=== PATIENT | female | born 1965 | race Caucasian/White ===

== ENCOUNTER 2021-10-12 16:24 | Inpatient (IN) ==
[2021-10-12] MEDS ORDERED: Calcium Carb (TUMS) 500 mg CHEW TAB PO PRN (16:58)
[2021-10-12] MEDS ORDERED: Phenol 1.4% Throat Spray 177 ml BTL MT PRN (17:26)
[2021-10-12] MEDS: Polyethylene Glycol 3350 17 GM PACKET PO SCH (19:44)
[2021-10-13] MEDS: Polyethylene Glycol 3350 17 GM PACKET PO SCH ×2 (09:28→21:45)
[2021-10-13] MEDS: Venlafaxine XR 75 mg PO SCH (09:28)
[2021-10-13] MEDS ORDERED: CALCIUM GLUCONATE 1GM/50ML NS 1 GM/50 ML BAG IV ONE (14:38)
[2021-10-14] MEDS: Polyethylene Glycol 3350 17 GM PACKET PO SCH ×2 (08:35→21:24)
[2021-10-14] MEDS: Venlafaxine XR 75 mg PO SCH (08:35)
[2021-10-15] MEDS: Venlafaxine XR 75 mg PO SCH (08:18)
[2021-10-15] MEDS: Polyethylene Glycol 3350 17 GM PACKET PO SCH ×2 (10:16→20:55)
[2021-10-16] MEDS: Venlafaxine XR 75 mg PO SCH (08:20)
[2021-10-16] MEDS ORDERED: fentaNYL 100 mcg/2 ml 50 MCG/ML VIAL IV SLOW PU ONE ×2 (11:15→15:11)
[2021-10-16] MEDS: Polyethylene Glycol 3350 17 GM PACKET PO SCH (12:07)
[2021-10-16 14:08] LABS: ABS Eosinophils 0.2 10^3/ul (0-0.6); ABS Monocytes 0.4 10^3/ul (0-0.8); ABS Neutrophils 7.2 10^3/ul (1.5-7.7); Eosinophil % 2.2 %; Hematocrit 34 % (35-47); Lymphocyte % 10.8 %; Mean Corpuscular HGB Conc 33 g/dL (31-36); Mean Corpuscular Hemoglobin 28 pg (27-31); Mean Corpuscular Volume 84 fL (80-97); Mean Platelet Volume 7.6 fL (7.4-10.4); Platelet Count 318 10^3/uL (150-450); Red Blood Count 3.99 10^6 /uL (3.70-4.87); Red Cell Distribution Width 15 % (10-15); White Blood Count 8.9 10^3/uL (3.5-10.8)
[2021-10-16 14:44] VITALS: BP 144/87
[2021-10-16 14:50] LABS: Albumin 3.6 g/dL (3.2-5.2); Albumin/Globulin Ratio 1.3 (1-3); Globulin 2.7 g/dL (2-4); Magnesium 1.1 mg/dL (1.9-2.7); Potassium 3.9 mmol/L (3.5-5.0); Total Bilirubin 0.3 mg/dL (0.2-1.0); Total Protein 6.3 g/dL (6.4-8.9); eGFR CKD-EPI 104.5 (>60)
[2021-10-16] MEDS ORDERED: Magnesium Sulfate 2 gm BAG 2 GM/50 ML BAG IVPB ONE (14:51)
[2021-10-16 15:01] LABS: TSH Ultra Thyroid Stim Horm 8.53 mcIU/mL (0.34-5.60)
[2021-10-16 15:03] LABS: Free T4 0.81 ng/dL (0.61-1.12)
== END 2021-10-16 17:45 | disposition short-term general hospital (02) | DRG 389 ==
LOC: MED 16:24
PROVIDERS: ADMIT Internal Medicine; ATTEND Internal Medicine

== ENCOUNTER 2021-10-16 17:55 | Inpatient (IN) ==
[2021-10-16] MEDS ORDERED: Calcium Carb (TUMS) 500 mg CHEW TAB PO PRN (18:01)
[2021-10-16] MEDS ORDERED: Naloxone Nasal Spray 4 MG/0.1 ML NASAL.SPR INTRANASAL PRN (18:01)
[2021-10-16] MEDS: Polyethylene Glycol 3350 17 GM PACKET PO SCH (20:29)
[2021-10-16] MEDS: Enoxaparin 40 MG/0.4 ML SYR SUBCUT SCH (20:29)
[2021-10-16] MEDS ORDERED: Methylnaltrexone SQ (NF) 12 MG/0.6 ML VIAL SUBCUT ONE (20:30)
[2021-10-17] MEDS: Polyethylene Glycol 3350 17 GM PACKET PO SCH ×3 (08:11→20:16)
[2021-10-17] MEDS: Venlafaxine XR 75 mg PO SCH (08:12)
[2021-10-17 08:28] LABS: ABS Eosinophils 0.2 10^3/ul (0-0.6); ABS Monocytes 0.3 10^3/ul (0-0.8); ABS Neutrophils 6.3 10^3/ul (1.5-7.7); Eosinophil % 3.1 %; Hematocrit 34 % (35-47); Hemoglobin 11.3 g/dL (12.0-16.0); Lymphocyte % 12.4 %; Mean Corpuscular HGB Conc 33 g/dL (31-36); Mean Corpuscular Hemoglobin 28 pg (27-31); Mean Corpuscular Volume 84 fL (80-97); Mean Platelet Volume 7.3 fL (7.4-10.4); Platelet Count 316 10^3/uL (150-450); Red Blood Count 4.03 10^6 /uL (3.70-4.87); Red Cell Distribution Width 15 % (10-15); White Blood Count 7.9 10^3/uL (3.5-10.8)
[2021-10-17 09:00] LABS: Calcium 9.2 mg/dL (8.6-10.3); Magnesium 1.4 mg/dL (1.9-2.7); Potassium 3.7 mmol/L (3.5-5.0); eGFR CKD-EPI 106.6 (>60)
[2021-10-17] MEDS ORDERED: Magnesium Sulfate 2 gm BAG 2 GM/50 ML BAG IVPB ONE ×2 (13:01→18:00)
[2021-10-17] MEDS ORDERED: Potassium Chlor 20 meq TAB.ER PO ONE (13:01)
[2021-10-17] MEDS: Enoxaparin 40 MG/0.4 ML SYR SUBCUT SCH (17:24)
[2021-10-18 06:45] LABS: ABS Eosinophils 0.2 10^3/ul (0-0.6); ABS Monocytes 0.4 10^3/ul (0-0.8); ABS Neutrophils 5.1 10^3/ul (1.5-7.7); Eosinophil % 3.2 %; Hematocrit 32 % (35-47); Hemoglobin 10.6 g/dL (12.0-16.0); Lymphocyte % 14.7 %; Mean Corpuscular HGB Conc 33 g/dL (31-36); Mean Corpuscular Hemoglobin 28 pg (27-31); Mean Corpuscular Volume 85 fL (80-97); Mean Platelet Volume 7.5 fL (7.4-10.4); Platelet Count 311 10^3/uL (150-450); Red Blood Count 3.78 10^6 /uL (3.70-4.87); Red Cell Distribution Width 15 % (10-15); White Blood Count 6.8 10^3/uL (3.5-10.8)
[2021-10-18 07:03] LABS: Magnesium 1.8 mg/dL (1.9-2.7); Potassium 4.2 mmol/L (3.5-5.0); eGFR CKD-EPI 104.5 (>60)
[2021-10-18] MEDS: Venlafaxine XR 75 mg PO SCH (08:54)
[2021-10-18] MEDS: Polyethylene Glycol 3350 17 GM PACKET PO SCH ×3 (09:02→21:44)
[2021-10-18] MEDS ORDERED: Magnesium Sulfate 2 gm BAG 2 GM/50 ML BAG IVPB ONE (11:41)
[2021-10-18] MEDS ORDERED: Sodium Phosphate ADULT ENEMA 133 ML BTL PR ONE (11:42)
[2021-10-18] MEDS ORDERED: Methylnaltrexone SQ (NF) 12 MG/0.6 ML VIAL SUBCUT ONE (11:44)
[2021-10-18] MEDS ORDERED: Orphenadrine Citrate INJ 30 mg/ml 2 ml VIAL (60 mg) IV SCH (12:00)
[2021-10-18] MEDS ORDERED: Orphenadrine Citrate INJ 30 mg/ml 2 ml VIAL (60 mg) IV ONE (12:31)
[2021-10-18] MEDS: Enoxaparin 40 MG/0.4 ML SYR SUBCUT SCH (16:55)
[2021-10-19 06:00] LABS: Calcium 8.6 mg/dL (8.6-10.3); Magnesium 1.5 mg/dL (1.9-2.7); Potassium 3.8 mmol/L (3.5-5.0); eGFR CKD-EPI 106.1 (>60)
[2021-10-19 06:55] LABS: ABS Eosinophils 0.1 10^3/ul (0-0.6); ABS Monocytes 0.4 10^3/ul (0-0.8); ABS Neutrophils 3.7 10^3/ul (1.5-7.7); Eosinophil % 2.8 %; Hematocrit 30 % (35-47); Hemoglobin 9.9 g/dL (12.0-16.0); Lymphocyte % 18.1 %; Mean Corpuscular HGB Conc 33 g/dL (31-36); Mean Corpuscular Hemoglobin 28 pg (27-31); Mean Corpuscular Volume 85 fL (80-97); Mean Platelet Volume 7.8 fL (7.4-10.4); Nucleated Red Blood Cells % 0.1; Platelet Count 297 10^3/uL (150-450); Red Blood Count 3.53 10^6 /uL (3.70-4.87); Red Cell Distribution Width 15 % (10-15); White Blood Count 5.3 10^3/uL (3.5-10.8)
[2021-10-19] MEDS ORDERED: Potassium Chlor 20 meq TAB.ER PO ONE (07:10)
[2021-10-19] MEDS: Venlafaxine XR 75 mg PO SCH (07:38)
[2021-10-19] MEDS: Polyethylene Glycol 3350 17 GM PACKET PO SCH ×2 (07:41→20:44)
[2021-10-19] MEDS: Enoxaparin 40 MG/0.4 ML SYR SUBCUT SCH (19:14)
[2021-10-20 06:15] LABS: ABS Eosinophils 0.2 10^3/ul (0-0.6); ABS Lymphocytes 0.9 10^3/ul (1.0-4.8); ABS Monocytes 0.4 10^3/ul (0-0.8); ABS Neutrophils 4.3 10^3/ul (1.5-7.7); Hematocrit 27 % (35-47); Lymphocyte % 15.1 %; Mean Corpuscular HGB Conc 33 g/dL (31-36); Mean Corpuscular Hemoglobin 28 pg (27-31); Mean Corpuscular Volume 84 fL (80-97); Mean Platelet Volume 7.6 fL (7.4-10.4); Platelet Count 241 10^3/uL (150-450); Red Blood Count 3.25 10^6 /uL (3.70-4.87); Red Cell Distribution Width 15 % (10-15); White Blood Count 5.7 10^3/uL (3.5-10.8)
[2021-10-20 06:33] LABS: Calcium 8.5 mg/dL (8.6-10.3); Magnesium 1.3 mg/dL (1.9-2.7); Potassium 3.8 mmol/L (3.5-5.0); eGFR CKD-EPI 106.1 (>60)
[2021-10-20] MEDS ORDERED: Magnesium Sulfate 2 gm BAG 2 GM/50 ML BAG IVPB ONE ×2 (07:19→11:00)
[2021-10-20] MEDS: Polyethylene Glycol 3350 17 GM PACKET PO SCH ×2 (08:09→22:02)
[2021-10-20] MEDS: Venlafaxine XR 75 mg PO SCH (08:11)
[2021-10-20] MEDS: Enoxaparin 40 MG/0.4 ML SYR SUBCUT SCH (17:17)
[2021-10-21 06:43] LABS: Calcium 8.8 mg/dL (8.6-10.3); Magnesium 1.4 mg/dL (1.9-2.7); Potassium 4.1 mmol/L (3.5-5.0)
[2021-10-21] MEDS ORDERED: Magnesium Sulfate 2 gm BAG 2 GM/50 ML BAG IVPB ONE (08:00)
[2021-10-21] MEDS: Polyethylene Glycol 3350 17 GM PACKET PO SCH ×2 (08:28→22:00)
[2021-10-21] MEDS: Venlafaxine XR 75 mg PO SCH (08:28)
[2021-10-21] MEDS: Enoxaparin 40 MG/0.4 ML SYR SUBCUT SCH (17:28)
[2021-10-22] MEDS: Venlafaxine XR 75 mg PO SCH (07:43)
[2021-10-22] MEDS: Polyethylene Glycol 3350 17 GM PACKET PO SCH (07:44)
[2021-10-22] MEDS: Enoxaparin 40 MG/0.4 ML SYR SUBCUT SCH (17:28)
[2021-10-23] MEDS: Venlafaxine XR 75 mg PO SCH (08:26)
[2021-10-23] MEDS: Polyethylene Glycol 3350 17 GM PACKET PO SCH (08:27)
[2021-10-23] MEDS: Enoxaparin 40 MG/0.4 ML SYR SUBCUT SCH (18:17)
[2021-10-24] MEDS: Venlafaxine XR 75 mg PO SCH (08:46)
[2021-10-24] MEDS: Polyethylene Glycol 3350 17 GM PACKET PO SCH (08:57)
[2021-10-24] MEDS: Enoxaparin 40 MG/0.4 ML SYR SUBCUT SCH (17:14)
[2021-10-25 05:38] LABS: ABS Eosinophils 0.3 10^3/ul (0-0.6); ABS Monocytes 0.4 10^3/ul (0-0.8); Eosinophil % 4.4 %; Hematocrit 30 % (35-47); Hemoglobin 9.7 g/dL (12.0-16.0); Lymphocyte % 17.3 %; Mean Corpuscular HGB Conc 32 g/dL (31-36); Mean Corpuscular Hemoglobin 27 pg (27-31); Mean Corpuscular Volume 85 fL (80-97); Mean Platelet Volume 7.6 fL (7.4-10.4); Nucleated Red Blood Cells % 0.1; Platelet Count 222 10^3/uL (150-450); Red Blood Count 3.55 10^6 /uL (3.70-4.87); Red Cell Distribution Width 15 % (10-15); White Blood Count 5.7 10^3/uL (3.5-10.8)
[2021-10-25 05:51] LABS: Calcium 8.2 mg/dL (8.6-10.3); Potassium 3.7 mmol/L (3.5-5.0)
[2021-10-25 08:04] LABS: Magnesium 1.1 mg/dL (1.9-2.7)
[2021-10-25] MEDS ORDERED: Magnesium Sulf 4 GM/100 ML IV 4,000 MG/100 ML BAG IVPB ONE (08:47)
[2021-10-25] MEDS: Venlafaxine XR 75 mg PO SCH (08:49)
[2021-10-25] MEDS: Polyethylene Glycol 3350 17 GM PACKET PO SCH (08:52)
[2021-10-25] MEDS: Enoxaparin 40 MG/0.4 ML SYR SUBCUT SCH (18:02)
[2021-10-26] MEDS: Venlafaxine XR 75 mg PO SCH (08:35)
[2021-10-26] MEDS: Polyethylene Glycol 3350 17 GM PACKET PO SCH (08:36)
[2021-10-26] MEDS ORDERED: Magnesium Sulf 4 GM/100 ML IV 4,000 MG/100 ML BAG IVPB ONE (09:54)
[2021-10-26 12:58] LABS: Rapid COVID-19 Molecular Undetected (Undetected)
[2021-10-26] MEDS: Enoxaparin 40 MG/0.4 ML SYR SUBCUT SCH (17:29)
[2021-10-27] MEDS: Venlafaxine XR 75 mg PO SCH (07:44)
[2021-10-27] MEDS: Polyethylene Glycol 3350 17 GM PACKET PO SCH (07:45)
[2021-10-27] MEDS ORDERED: Magnesium Sulf 4 GM/100 ML IV 4,000 MG/100 ML BAG IVPB ONE (07:45)
[2021-10-27 10:29] VITALS: BP 108/67
== END 2021-10-27 15:25 | DRG 389 ==
LOC: MED → SUATTDRO 17:59
PROVIDERS: ADMIT Internal Medicine; ATTEND Internal Medicine

== ENCOUNTER 2022-10-21 17:12 | Inpatient (IN) ==
[2022-10-21] MEDS ORDERED: HYDROmorphone 1 MG/1 ML SYRINGE IV SLOW PU ONE (17:30)
[2022-10-21] MEDS ORDERED: Lactated Ringers 1000 ml BAG 1,000 ML IV ONE ×2 (17:40→18:24)
[2022-10-21] MEDS ORDERED: Acetaminophen IV 1 GM/100ML 1,000 MG/100 ML BAG IV ONE (17:43)
[2022-10-21 18:13] LABS: Hematocrit 37.7 % (35-45); Mean Corpuscular Hemoglobin 29.9 pg (27-33); Mean Corpuscular Hgb Conc 34.6 g/dL (31-36); Mean Corpuscular Volume 86.6 fL (80-97); Red Blood Count 4.35 10^6/uL (3.63-4.92); Red Cell Distribution Width 14.4 % (12-17); White Blood Count 15.7 10^3/uL (3.8-11.8)
[2022-10-21 18:19] LABS: Activated Partial Thrombo Time 29.4 seconds (26.0-38.0); INR 1.1 (0.88-1.18)
[2022-10-21] MEDS ORDERED: Piperacillin/Tazobac ADVAN 3.375 GM in NS 0.9% 100 ml BAG 100 ML IV ONE (18:22)
[2022-10-21 18:30] LABS: High Sens Troponin Baseline 32 pg/mL (<15)
[2022-10-21 18:33] LABS: RBC Morphology Normal (Normal)
[2022-10-21 18:34] LABS: Mean Platelet Volume 8.2 fL (7.5-11.2); Platelet Count 229 10^3/uL (150-450)
[2022-10-21 18:35] LABS: ABS Lymphocytes 0.3 10^3/uL (1.0-4.8); ABS Monocytes 0.2 10^3/uL (0.0-0.9); ABS Neutrophils 15.1 10^3/uL (1.5-7.6); ABS Nucleated RBC 0.01 10^3/ul; Eosinophil % 0.1 %; Lymphocyte % 2.1 %; Nucleated Red Blood Cells % 0.1 /100 WBC (0.0-0.4)
[2022-10-21 18:40] LABS: ALT 62 U/L (7-52); Albumin 4.1 g/dL (3.2-5.2); Albumin/Globulin Ratio 1.1 (1-3); Alkaline Phosphatase 125 U/L (35-149); Blood Urea Nitrogen 20 mg/dL (6-24); C Reactive Protein 175.66 mg/L (<8.01); CO2 Carbon Dioxide 28 mmol/L (22-32); Calcium 9.2 mg/dL (8.6-10.3); Chloride 93 mmol/L (101-111); Creatinine, Serum 0.95 mg/dL (0.51-0.95); Globulin 3.7 g/dL (2-4); Glucose 212 mg/dL (70-100); Sodium 133 mmol/L (135-145); Total Protein 7.8 g/dL (6.4-8.9); eGFR CKD-EPI 69.9 (>60)
[2022-10-21] MEDS ORDERED: Iodixanol (CONTRAST) 320 MG/ML 100 ML SDV IV ONE (19:06)
[2022-10-21] MEDS ORDERED: HYDROmorphone 0.5 MG/0.5 ML SYRINGE IV SLOW PU ONE (19:22)
[2022-10-21 19:41] LABS: Anion Gap 12 mmol/L (2-16)
[2022-10-21 19:49] LABS: Potassium Redraw 3.4 mmol/L (3.5-5.0)
[2022-10-21] MEDS ORDERED: NS 0.9% 1000 ml BAG 1,000 ML IV SCH (22:45)
[2022-10-21] MEDS ORDERED: Potassium Chlor 20 meq TAB.ER PO ONE (22:48)
[2022-10-21] MEDS ORDERED: Zosyn per Pharmacy NOTE FOLLOW UP SCH (23:00)
[2022-10-21] MEDS ORDERED: Magnesium Hydroxide LIQ 30 ML UDC PO PRN (23:03)
[2022-10-22] MEDS ORDERED: oxyCODONE/Acetamin 5/325 mg TAB PO PRN (00:14)
[2022-10-22] MEDS ORDERED: Polyethylene Glycol 3350 17 GM PACKET PO PRN (00:14)
[2022-10-22] MEDS ORDERED: ONLY PO SCH (00:30)
[2022-10-22] MEDS ORDERED: HYDROCODONE BITARTRATE PO SCH (00:30)
[2022-10-22 00:51] LABS: Urine Appearance Cloudy; Urine Bacteria Absent (Absent); Urine Bilirubin Negative (Negative); Urine Blood 1+ (Negative); Urine Color Yellow; Urine Glucose Negative (Negative); Urine Ketones Negative (Negative); Urine Nitrite Negative (Negative); Urine Protein 2+(100 mg/dL) (Negative); Urine Red Blood Cell 3+(>10/hpf) (Absent); Urine Urobilinogen Negative (Negative); Urine White Blood Cell 3+(>20/hpf) (Absent)
[2022-10-22 01:00] LABS: Urine Squamous Epithelial Cell Present (Absent)
[2022-10-22] MEDS ORDERED: ZOSYN 3.375 GM Q8H per EXTENDED INFUSION IV SCH (01:30)
[2022-10-22] MEDS ORDERED: HYDROmorphone 0.5 MG/0.5 ML SYRINGE IV PRN ×2 (02:03→06:31)
[2022-10-22] MEDS: Enoxaparin 40 MG/0.4 ML SYR SUBCUT SCH ×2 (02:17→21:33)
[2022-10-22 06:19] LABS: Hemoglobin 11.9 g/dL (11.5-14.3); Mean Corpuscular Hemoglobin 30.2 pg (27-33); Mean Platelet Volume 8.3 fL (7.5-11.2); Platelet Count 189 10^3/uL (150-450); Red Blood Count 3.93 10^6/uL (3.63-4.92); Red Cell Distribution Width 14.3 % (12-17); White Blood Count 27.9 10^3/uL (3.8-11.8)
[2022-10-22 06:36] LABS: Albumin 3.5 g/dL (3.2-5.2); Albumin/Globulin Ratio 1.1 (1-3); Calcium 8.5 mg/dL (8.6-10.3); Creatinine, Serum 1.18 mg/dL (0.51-0.95); Globulin 3.2 g/dL (2-4); Magnesium 1.1 mg/dL (1.9-2.7); Potassium 3.3 mmol/L (3.5-5.0); Total Bilirubin 2.9 mg/dL (0.2-1.0); Total Protein 6.7 g/dL (6.4-8.9); eGFR CKD-EPI 53.9 (>60)
[2022-10-22 07:05] LABS: RBC Morphology Normal (Normal)
[2022-10-22 07:06] LABS: ABS Basophils 0.1 10^3/uL (0.0-0.1); ABS Lymphocytes 0.2 10^3/uL (1.0-4.8); ABS Monocytes 0.7 10^3/uL (0.0-0.9); ABS Neutrophils 26.9 10^3/uL (1.5-7.6); Lymphocyte % 0.8 %
[2022-10-22] MEDS ORDERED: Magnesium Sulf 4 GM/100 ML IV 4,000 MG/100 ML BAG IVPB ONE (07:31)
[2022-10-22] MEDS: Morphine 2 MG/ML SYRINGE IV PRN ×4 (07:58→22:23)
[2022-10-22] MEDS ORDERED: Meropenem 1 GM PREMIX(*) 1 GM/50 ML BAG IV SCH (08:00)
[2022-10-22 08:08] LABS: Direct Bilirubin 2.1 mg/dL (0.03-0.18); Indirect Bilirubin 0.8 mg/dL (0.3-1.0)
[2022-10-22] MEDS: NS 0.9% 1000 ml BAG 1,000 ML IV SCH ×2 (08:15→17:50)
[2022-10-22] MEDS: KCL 20 MEQ/100 ML IVPREMIX 20 MEQ/100 ML BAG IV SCH ×2 (10:44→13:15)
[2022-10-22] MEDS: Polyethylene Glycol 3350 17 GM PACKET PO SCH (10:55)
[2022-10-22] MEDS: Venlafaxine XR 75 mg PO SCH (10:55)
[2022-10-22] MEDS: NF: Mirabegron 50 mg ER TAB (NF) PO SCH (10:55)
[2022-10-22] MEDS: HYDROmorphone 0.5 MG/0.5 ML SYRINGE IV PRN ×2 (15:13→21:34)
[2022-10-22 16:44] LABS: Albumin 3.3 g/dL (3.2-5.2); Calcium 8.2 mg/dL (8.6-10.3); Creatinine, Serum 0.87 mg/dL (0.51-0.95); Direct Bilirubin 0.9 mg/dL (0.03-0.18); Globulin 3.3 g/dL (2-4); Indirect Bilirubin 0.9 mg/dL (0.3-1.0); Magnesium 2.7 mg/dL (1.9-2.7); Phosphorus 2.7 mg/dL (2.5-5.0); Potassium 3.9 mmol/L (3.5-5.0); Total Bilirubin 1.8 mg/dL (0.2-1.0); Total Protein 6.6 g/dL (6.4-8.9); eGFR CKD-EPI 77.7 (>60)
[2022-10-22 18:06] LABS: Hematocrit 32.7 % (35-45); Mean Corpuscular Hemoglobin 30.4 pg (27-33); Mean Corpuscular Hgb Conc 33.6 g/dL (31-36); Mean Corpuscular Volume 90.3 fL (80-97); Mean Platelet Volume 8.8 fL (7.5-11.2); Platelet Count 169 10^3/uL (150-450); Red Blood Count 3.62 10^6/uL (3.63-4.92); Red Cell Distribution Width 14.3 % (12-17); White Blood Count 23.2 10^3/uL (3.8-11.8)
[2022-10-22 18:09] LABS: ABS Lymphocytes 0.7 10^3/uL (1.0-4.8); ABS Monocytes 0.5 10^3/uL (0.0-0.9); ABS Nucleated RBC 0.01 10^3/ul; Eosinophil % 0.1 %; Nucleated Red Blood Cells % 0.1 /100 WBC (0.0-0.4)
[2022-10-22] MEDS ORDERED: HYDROmorphone 1 MG/1 ML SYRINGE IV ONE (18:30)
[2022-10-22] MEDS: cefTRIAXone 2 gm/50 mL D5W 2 GM/50 ML BAG IV SCH (19:44)
[2022-10-22] MEDS: Senna TAB 8.6 mg TAB PO SCH (21:14)
[2022-10-23] MEDS: HYDROmorphone 0.5 MG/0.5 ML SYRINGE IV PRN ×2 (02:27→07:26)
[2022-10-23] MEDS: Morphine 2 MG/ML SYRINGE IV PRN ×4 (04:37→21:46)
[2022-10-23] MEDS: Polyethylene Glycol 3350 17 GM PACKET PO SCH (07:17)
[2022-10-23] MEDS: Venlafaxine XR 75 mg PO SCH (07:27)
[2022-10-23] MEDS: NF: Mirabegron 50 mg ER TAB (NF) PO SCH (07:33)
[2022-10-23] MEDS ORDERED: Sulfur Hexaflouride MICROSPHR 25 MG VIAL ONE (09:52)
[2022-10-23 10:10] LABS: ABS Basophils 0.1 10^3/uL (0.0-0.1); ABS Eosinophils 0.3 10^3/uL (0.0-0.5); ABS Lymphocytes 0.6 10^3/uL (1.0-4.8); ABS Monocytes 0.6 10^3/uL (0.0-0.9); ABS Neutrophils 16.2 10^3/uL (1.5-7.6); ABS Nucleated RBC 0.01 10^3/ul; Eosinophil % 1.4 %; Hematocrit 30.4 % (35-45); Hemoglobin 10.3 g/dL (11.5-14.3); Lymphocyte % 3.5 %; Mean Corpuscular Hemoglobin 29.9 pg (27-33); Mean Corpuscular Hgb Conc 33.8 g/dL (31-36); Mean Corpuscular Volume 88.6 fL (80-97); Mean Platelet Volume 8.2 fL (7.5-11.2); Platelet Count 158 10^3/uL (150-450); Red Blood Count 3.43 10^6/uL (3.63-4.92); Red Cell Distribution Width 14.5 % (12-17); White Blood Count 17.6 10^3/uL (3.8-11.8)
[2022-10-23 10:26] LABS: Albumin 3.2 g/dL (3.2-5.2); Albumin/Globulin Ratio 0.9 (1-3); Calcium 8.2 mg/dL (8.6-10.3); Creatinine, Serum 0.73 mg/dL (0.51-0.95); Direct Bilirubin 0.2 mg/dL (0.03-0.18); Globulin 3.4 g/dL (2-4); Indirect Bilirubin 0.4 mg/dL (0.3-1.0); Magnesium 2.2 mg/dL (1.9-2.7); Phosphorus 2.1 mg/dL (2.5-5.0); Potassium 3.2 mmol/L (3.5-5.0); Total Bilirubin 0.6 mg/dL (0.2-1.0); Total Protein 6.6 g/dL (6.4-8.9); eGFR CKD-EPI 95.9 (>60)
[2022-10-23] MEDS ORDERED: Potassium Chloride LIQUID 20 MEQ/15 ML LIQUID PO ONE (11:24)
[2022-10-23] MEDS: Albuterol HFA INHALER 8 gm MDI INH PRN ×2 (11:29→19:38)
[2022-10-23] MEDS: HYDROmorphone 1 MG/1 ML SYRINGE IV PRN ×2 (12:55→19:26)
[2022-10-23] MEDS: cefTRIAXone 2 gm/50 mL D5W 2 GM/50 ML BAG IV SCH (19:27)
[2022-10-23] MEDS: Enoxaparin 40 MG/0.4 ML SYR SUBCUT SCH (20:47)
[2022-10-23] MEDS: Senna TAB 8.6 mg TAB PO SCH (20:51)
[2022-10-24] MEDS: HYDROmorphone 1 MG/1 ML SYRINGE IV PRN ×5 (02:45→22:31)
[2022-10-24] MEDS: Albuterol HFA INHALER 8 gm MDI INH PRN ×3 (02:50→18:18)
[2022-10-24] MEDS: Morphine 2 MG/ML SYRINGE IV PRN ×4 (05:27→20:45)
[2022-10-24 05:34] LABS: ABS Eosinophils 0.3 10^3/uL (0.0-0.5); ABS Lymphocytes 0.9 10^3/uL (1.0-4.8); ABS Monocytes 0.8 10^3/uL (0.0-0.9); ABS Neutrophils 12.9 10^3/uL (1.5-7.6); Eosinophil % 2.3 %; Hematocrit 30.8 % (35-45); Hemoglobin 10.4 g/dL (11.5-14.3); Mean Corpuscular Hgb Conc 33.9 g/dL (31-36); Mean Corpuscular Volume 88.7 fL (80-97); Mean Platelet Volume 8.3 fL (7.5-11.2); Platelet Count 180 10^3/uL (150-450); Red Blood Count 3.47 10^6/uL (3.63-4.92); Red Cell Distribution Width 14.6 % (12-17); White Blood Count 14.9 10^3/uL (3.8-11.8)
[2022-10-24 05:49] LABS: Calcium 8.5 mg/dL (8.6-10.3); Creatinine, Serum 0.73 mg/dL (0.51-0.95); Magnesium 2.2 mg/dL (1.9-2.7); Phosphorus 2.4 mg/dL (2.5-5.0); Potassium 3.5 mmol/L (3.5-5.0); eGFR CKD-EPI 95.9 (>60)
[2022-10-24] MEDS ORDERED: Potassium Chlor 20 meq TAB.ER PO ONE (07:14)
[2022-10-24] MEDS: Venlafaxine XR 75 mg PO SCH (08:45)
[2022-10-24] MEDS: Polyethylene Glycol 3350 17 GM PACKET PO SCH (08:46)
[2022-10-24] MEDS: NF: Mirabegron 50 mg ER TAB (NF) PO SCH (08:46)
[2022-10-24] MEDS: Enoxaparin 40 MG/0.4 ML SYR SUBCUT SCH (20:26)
[2022-10-24] MEDS: cefTRIAXone 2 gm/50 mL D5W 2 GM/50 ML BAG IV SCH (20:34)
[2022-10-24] MEDS: Senna TAB 8.6 mg TAB PO SCH (20:46)
[2022-10-25] MEDS: Morphine 2 MG/ML SYRINGE IV PRN ×4 (01:09→17:53)
[2022-10-25] MEDS: HYDROmorphone 1 MG/1 ML SYRINGE IV PRN ×4 (05:54→20:17)
[2022-10-25 06:12] LABS: Hematocrit 32.1 % (35-45); Hemoglobin 10.8 g/dL (11.5-14.3); Mean Corpuscular Hemoglobin 29.7 pg (27-33); Mean Corpuscular Hgb Conc 33.7 g/dL (31-36); Mean Corpuscular Volume 87.9 fL (80-97); Mean Platelet Volume 8.5 fL (7.5-11.2); Platelet Count 189 10^3/uL (150-450); Red Blood Count 3.65 10^6/uL (3.63-4.92); Red Cell Distribution Width 14.2 % (12-17); White Blood Count 8.8 10^3/uL (3.8-11.8)
[2022-10-25 06:40] LABS: ABS Eosinophils 0.4 10^3/uL (0.0-0.5); ABS Monocytes 0.7 10^3/uL (0.0-0.9); ABS Neutrophils 6.8 10^3/uL (1.5-7.6); ABS Nucleated RBC 0.01 10^3/ul; Lymphocyte % 10.9 %; Nucleated Red Blood Cells % 0.1 /100 WBC (0.0-0.4)
[2022-10-25 06:42] LABS: Blood Urea Nitrogen 14 mg/dL (6-24); CO2 Carbon Dioxide 25 mmol/L (22-32); Calcium 8.7 mg/dL (8.6-10.3); Chloride 99 mmol/L (101-111); Creatinine, Serum 0.78 mg/dL (0.51-0.95); Glucose 187 mg/dL (70-100); Magnesium 1.7 mg/dL (1.9-2.7); Sodium 133 mmol/L (135-145); eGFR CKD-EPI 88.5 (>60)
[2022-10-25] MEDS ORDERED: Magnesium Sulfate IV 3 GM in NS 0.9% 100 ml BAG 100 ML IVPB ONE (06:56)
[2022-10-25 07:52] LABS: Anion Gap 9 mmol/L (2-16)
[2022-10-25] MEDS: Venlafaxine XR 75 mg PO SCH (08:13)
[2022-10-25] MEDS: Polyethylene Glycol 3350 17 GM PACKET PO SCH (08:20)
[2022-10-25] MEDS: NF: Mirabegron 50 mg ER TAB (NF) PO SCH (08:21)
[2022-10-25] MEDS: Senna TAB 8.6 mg TAB PO SCH (20:15)
[2022-10-25] MEDS: Enoxaparin 40 MG/0.4 ML SYR SUBCUT SCH (20:22)
[2022-10-25] MEDS: cefTRIAXone 2 gm/50 mL D5W 2 GM/50 ML BAG IV SCH (20:27)
[2022-10-26] MEDS: HYDROmorphone 1 MG/1 ML SYRINGE IV PRN ×3 (02:17→13:04)
[2022-10-26] MEDS: Morphine 2 MG/ML SYRINGE IV PRN ×2 (05:45→11:01)
[2022-10-26 06:11] LABS: Hematocrit 32.7 % (35-45); Hemoglobin 11.1 g/dL (11.5-14.3); Mean Corpuscular Hemoglobin 29.4 pg (27-33); Mean Corpuscular Hgb Conc 34.1 g/dL (31-36); Mean Corpuscular Volume 86.3 fL (80-97); Mean Platelet Volume 8.2 fL (7.5-11.2); Platelet Count 230 10^3/uL (150-450); Red Blood Count 3.79 10^6/uL (3.63-4.92); Red Cell Distribution Width 14.6 % (12-17); White Blood Count 9.8 10^3/uL (3.8-11.8)
[2022-10-26 06:29] LABS: Creatinine, Serum 0.69 mg/dL (0.51-0.95); Magnesium 1.8 mg/dL (1.9-2.7); Potassium 3.9 mmol/L (3.5-5.0); eGFR CKD-EPI 101.2 (>60)
[2022-10-26] MEDS ORDERED: Potassium Chlor 10 meq TAB PO ONE (07:46)
[2022-10-26] MEDS ORDERED: Magnesium Sulfate 2 gm BAG 2 GM/50 ML BAG IVPB ONE (07:46)
[2022-10-26] MEDS: Venlafaxine XR 75 mg PO SCH (07:55)
[2022-10-26] MEDS: Polyethylene Glycol 3350 17 GM PACKET PO SCH (07:55)
[2022-10-26 08:36] LABS: ABS Eosinophils 0.3 10^3/uL (0.0-0.5); ABS Monocytes 0.7 10^3/uL (0.0-0.9); ABS Neutrophils 7.7 10^3/uL (1.5-7.6); ABS Nucleated RBC 0.01 10^3/ul; Eosinophil % 3.1 %; Lymphocyte % 10.3 %; Nucleated Red Blood Cells % 0.1 /100 WBC (0.0-0.4); RBC Morphology Normal (Normal)
[2022-10-26 09:33] LABS: Rapid COVID-19 Molecular Undetected (Undetected)
[2022-10-26] MEDS: NF: Mirabegron 50 mg ER TAB (NF) PO SCH (11:02)
[2022-10-26 14:00] VITALS: BP 102/65
== END 2022-10-26 14:30 | DRG 872 ==
LOC: ED 17:12 → EDHOLD 17:12 → SUATTDRO 23:17 → MEDTELE 10-22 08:44 → MED 10-24 14:23
PROVIDERS: ADMIT Student in an Organized Health Care Education/Training Program; ATTEND Internal Medicine